=== PATIENT | male | born 1980 | race African-American/Black ===

== ENCOUNTER → 2019-03-10 | Outpatient (CLI) | payer OTHER ==
--- NOTE | 2019-03-10 13:12 | RAD ---
EXAM: Lumbar spine, 3 views. HISTORY: Disability determination. COMPARISON: None. FINDINGS: 3 views of the lumbar spine are obtained. 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 There is no listhesis. The vertebral bodies are normal in height and the disc spaces are preserved. IMPRESSION: No acute osseous finding. Electronically signed by: Cherie Quiros MD (03/10/2019 1:10 PM) [place] [id number]
--- NOTE | 2019-03-10 13:56 | RAD ---
EXAM: Right knee, 2 views. HISTORY: Disability determination. COMPARISON: None. FINDINGS: 2 views of the right knee are obtained. There is no fracture, dislocation or subluxation. There is trace joint fluid without a significant joint effusion. IMPRESSION: No acute osseous finding. Electronically signed by: Cherie Quiros MD (03/10/2019 1:53 PM) [id number]
== END | disposition home or self-care (01) ==
LOC: DXRAD 11:52
PROVIDERS: ATTEND Surgery
DX: M25.561 Pain in right knee (principal); M54.5 Low back pain; M54.10 Radiculopathy, site unspecified
CPT/HCPCS: 72100; 73560

== ENCOUNTER → 2021-10-19 | Day surgery (SDC) | payer OTHER ==
[2021-10-19 13:02] VITALS: BP 148/91
== END | disposition home or self-care (01) ==
LOC: SURG 12:44
PROVIDERS: ATTEND Anesthesiology
DX: M47.816 Spondylosis without myelopathy or radiculopathy, lumbar region (principal); I10 Essential (primary) hypertension; Z82.49 Family history of ischemic heart disease and other diseases of the circulatory system
CPT/HCPCS: 99214; G0463

== ENCOUNTER → 2021-11-01 | Day surgery (SDC) | payer OTHER ==
[~2021-11-01] MED LIST: 0.9 % SODIUM CHLORIDE 10 ML VIAL. ONE; DEXAMETHASONE SOD PHOS 10 MG/ML VIAL. ONE; IOHEXOL 300 MG/ML 50 ML VIAL. ONE; LIDOCAINE 1% PF 30 ML VIAL. ONE
[2021-11-01 10:05] VITALS: BP 135/82
== END | disposition home or self-care (01) ==
LOC: SURG 09:28
PROVIDERS: ATTEND Anesthesiology
DX: M54.16 Radiculopathy, lumbar region (principal); I10 Essential (primary) hypertension; Z82.49 Family history of ischemic heart disease and other diseases of the circulatory system; Z79.899 Other long term (current) drug therapy; Z72.89 Other problems related to lifestyle
CPT/HCPCS: 62323; A4209; A4657; A4930; J1100; Q9967